=== PATIENT | male | born 1960 | race African-American/Black ===

== ENCOUNTER 2017-01-27 05:48 | Emergency (ER) | payer OTHER ==
[~2017-01-27] VITALS: Ht 182.9 cm; Wt 137.0 kg
[2017-01-27 09:05] VITALS: BP 134/82
== END 2017-01-27 09:06 | disposition home or self-care (01) ==
LOC: ER 05:52
DX: F45.8 Other somatoform disorders (principal); I10 Essential (primary) hypertension; E11.9 Type 2 diabetes mellitus without complications
CPT/HCPCS: 70360; 99284